=== PATIENT | female | born 1955 | race Two or more races ===

== ENCOUNTER 2024-12-05 09:56 | Outpatient (CLI) | payer OTHER | END 2024-12-05 10:06 | disposition home or self-care (01) | LOC: RAD 09:56 | PROVIDERS: ATTEND Orthopaedic Surgery | DX: M79.641 Pain in right hand (principal); M79.642 Pain in left hand ==

== ENCOUNTER → 2025-01-29 08:54 | Outpatient (CLI) | payer OTHER ==
[~2025-01-29 08:54] MED LIST: GABAPENTIN300 M2 PO
== END | disposition home or self-care (01) ==
LOC: LAB 08:54
PROVIDERS: ATTEND Orthopaedic Surgery
DX: E55.9 Vitamin D deficiency, unspecified (principal); M85.9 Disorder of bone density and structure, unspecified; E56.1 Deficiency of vitamin K